=== PATIENT | female | born 1970 | race Caucasian/White ===

== ENCOUNTER 2016-12-08 16:26 | Emergency (ER) | payer MEDICARE, MEDICAID ==
[~2016-12-08 16:26] MED LIST: ABILIFY; ABILIFY2 MG PO; ALPRAZOLAM XR1 MG PO; ALPRAZOLAM1 M1 PO; ALPRAZOLAM1 MG; ALPRAZOLAM1 MG PO; AMBIEN CR PO; AMBIEN CR12.5 MG/BO PO; AMBIEN10 MG; AMOXICILLIN500 M2 PO; BENTYL10 MG; CLEOCIN HCL300 MG PO; CYCLOBENZAPRINE10 M1 PO; CYCLOBENZAPRINE10 MG PO; CYMBALTA60 M1 PO; DEPLIN7.5 MG; DICYCLOMINE PO; DOLACET 5/500 C1 CAP; FISH OIL PO; FLUOXETINE HCL20 MG PO; FLUOXETINE PO; GABAPENTIN100 MG PO; HYDROCODON-ACE1 EA16 PO; HYDROCODON-ACE1 EACH PO; HYDROCODONE; HYDROCODONE PO; HYDROCODONE/APA1 CAP PO; IBUPROFEN600 M1 PO; IBUPROFEN600 MG; LEXAPRO10 MG; MACROBID 100 M100 M1 PO; METHYLIN20 MG PO; MULTIVITAMIN1 TAB PO; NEURONTIN; NORCO 5-325 TA1 EACH PO; NORCO 5/325 TAB1 TAB PO; PEPCID20 MG PO; PERCOCET 5-3251 EACH PO; PERCOCET 5/3251 TAB PO; PROZAC20 MG; RITALIN20 MG PO; RITALIN5 MG; SAPHRIS5 MG SL; ZOFRAN ODT4 MG/UDTAB PO; ZOLPIDEM TART12.5 MG PO; [UNRECOGNIZED DRUG - OTHER] PO; [UNRECOGNIZED DRUG - OTHER] PO
[2016-12-08] MEDS ORDERED: TRAZODONE HCL300 M1 PO (16:43)
[2016-12-08 16:46] LABS: BASO % 0.3 % (0-2); EOS % 0.9 % (0-7); EOSINOPHIL ABSOLUTE COUNT 0.1 tho/cmm (0.0-0.7); HCT-HEMATOCRIT 44.4 % (34.0-49.0); HGB-HEMOGLOBIN 15.1 gm/dl (12.0-15.5); IMMATURE GRANULOCYTES ABSOLUTE 0.08 tho/cmm (0-0.03); IMMATURE GRANULOCYTES PERCENT 0.9 % (0-0.3); LYMPH ABSOLUTE COUNT 2.9 tho/cmm (0.8-4.5); MCH (MEAN CORPUSCULAR HGB) 29.4 pg (28.0-32.0); MCV (MEAN CELL VOLUME) 86.5 fl (82.0-96.0); MONO % 4.2 % (0-12); MONOCYTE ABSOLUTE COUNT 0.4 tho/cmm (0.0-1.2); NEUTROPHIL ABSOLUTE COUNT 5.8 tho/cmm (1.6-8.0); NEUTROPHIL-AUTOMATED 5.8 tho/cmm (1.6-8.0); NEUTROPHILS % 62.7 % (40-80); RED BLOOD COUNT 5.13 mil/cmm (4.00-5.20); RED CELL DISTRIBUTION WIDTH 13.1 % (12.4-16.4); WHITE BLOOD COUNT 9.3 tho/cmm (4.0-10.0)
[2016-12-08 17:03] LABS: ANION GAP 16 mmol/L (0-20); BLOOD UREA NITROGEN 11 mg/dl (6-24); CALCIUM 8.7 mg/dl (8.5-10.5); CARBON DIOXIDE-VENOUS 20 mmol/L (22-32); CHLORIDE 105 mmol/l (96-110); CREATININE 1.03 mg/dl (0.50-1.10); GLUCOSE 149 mg/dL (70-110); SODIUM 137 mmol/L (135-145); eGFR VALUE FOR BLACK 74 mL/Min
[2016-12-08 17:04] LABS: POTASSIUM 4.2 mmol/L (3.7-5.1)
[2017-01-30] MEDS ORDERED: KEFLEX500 M4 PO (19:55)
== END 2016-12-08 18:22 ==
LOC: EDMED 16:26
PROVIDERS: Emergency Medicine
DX: F41.9 Anxiety disorder, unspecified (principal); Z87.442 Personal history of urinary calculi; Z88.2 Allergy status to sulfonamides; Z90.710 Acquired absence of both cervix and uterus; Z98.890 Other specified postprocedural states
CPT/HCPCS: J1885; J2060